=== PATIENT | female | born 2000 | race Two or more races ===

== ENCOUNTER 2021-05-08 22:26 | Emergency (ER) | payer OTHER ==
[~2021-05-08] VITALS: Ht 165.1 cm; Wt 73.8 kg
[2021-05-08 22:28] VITALS: BP 142/64
[2021-05-08] MEDS ORDERED: IBUPROFEN 200 MG TABLET ONE (22:44)
[2021-05-08] MEDS ORDERED: IBUPROFEN 200 MG TABLET PO ONE (23:00)
--- NOTE | 2021-05-08 23:29 | NUR ---
Patient given discharge instructions and they have confirmed that they understand the instructions. Patient ambulatory with steady gait. NAD, all questions answered appropriately, denies additional needs at this time. No personal belongings left in room after discharge.
== END 2021-05-08 23:31 | disposition home or self-care (01) ==
LOC: ED 22:56
DX: S60.042A Contusion of left ring finger without damage to nail, initial encounter (principal); S67.195A Crushing injury of left ring finger, initial encounter; X58.XXXA Exposure to other specified factors, initial encounter; Y93.89 Activity, other specified; Y92.410 Unspecified street and highway as the place of occurrence of the external cause; Y99.8 Other external cause status
CPT/HCPCS: 29130; 99283